=== PATIENT | male | born 1970 ===

== ENCOUNTER 2023-01-14 14:41 | Emergency (ER) | payer SELFPAY ==
[~2023-01-14] VITALS: Ht 175.3 cm; Wt 112.0 kg
[2023-01-14] MEDS ORDERED: Norco 5-325 Ta1 EACH PO (19:37)
[2023-01-14 20:00] VITALS: BP 136/74
== END 2023-01-14 20:04 | disposition home or self-care (01) ==
LOC: ER 14:41
DX: S82.391A Other fracture of lower end of right tibia, initial encounter for closed fracture (principal); S82.831A Other fracture of upper and lower end of right fibula, initial encounter for closed fracture; W17.81XA Fall down embankment (hill), initial encounter
CPT/HCPCS: 27752; 29505; 73590; 96374-59; 96375-59; 99284-25; A9270; J1885; J3010